=== PATIENT | female | born 2005 | race Caucasian/White ===

== ENCOUNTER 2025-03-08 06:20 | Day surgery (SDC) | payer BC, SELFPAY | END 2025-03-08 10:11 | disposition home or self-care (01) | LOC: GI 06:20 | PROVIDERS: ATTENDING PHYSICIAN Internal Medicine Gastroenterology | DX: K62.5 Hemorrhage of anus and rectum (principal); R19.4 Change in bowel habit; K64.8 Other hemorrhoids; R12 Heartburn; K31.89 Other diseases of stomach and duodenum | CPT/HCPCS: 45380; 43239; 88305; 88342 ==